=== PATIENT | male | born 1985 | race African-American/Black ===

== ENCOUNTER 2022-04-04 14:56 | Emergency (ER) | payer SELFPAY ==
[~2022-04-04] VITALS: Ht 185.4 cm; Wt 89.0 kg
[2022-04-04 14:58] VITALS: BP 123/60
[2022-04-04] MEDS ORDERED: BENZ-16 MT (16:46)
[2022-04-04] MEDS ORDERED: IBUP-2028 MT (16:46)
[2022-04-04] MEDS ORDERED: TOPUD PO (16:46)
== END 2022-04-04 17:05 | disposition home or self-care (01) ==
LOC: ER 14:56
DX: J06.9 Acute upper respiratory infection, unspecified (principal)
CPT/HCPCS: 71045; 93005; 99283